=== PATIENT | female | born 1955 | race Caucasian/White ===

== ENCOUNTER → 2023-03-13 11:11 | Outpatient (CLI) | payer MEDICARE, SELFPAY ==
--- NOTE | 2023-03-13 11:34 | DI.DEXA.S_ITS ---
Bone Density Report Name: ERIC ORTIZ Age: 68 Sex: Female Ethnicity: White Date of : 1955 Indication: postmenopausal; screening for osteoporosis; Referring Provider: KARON GAONA Study: Bone densitometry was performed. Exam Date: March 13, 2023 Accession number: [id number] Bone Density: Region BMD T-score Z-score Classification AP Spine(L1-L4) 1.019 -0.3 1.6 Normal Femoral Neck (Left) 0.783 -0.6 1.0 Normal Total Hip (Left) 0.928 -0.1 1.2 Normal Femoral Neck (Right) 0.774 -0.7 0.9 Normal Total Hip (Right) 0.932 -0.1 1.3 Normal Total Hip Mean 0.930 -0.1 1.3 Normal World Health Organization criteria for BMD impression classify patients as: Normal (T-score at or above -1.0), Osteopenia (T-score between -1.0 and -2.5), or Osteoporosis (T-score at or below -2.5). 10-year Fracture Risk: FRAX not reported because: All T-scores for Spine Total, Hip Total, Femoral Neck at or above -1.0 Impression: The patient has normal bone mass. Discussion: BONE DENSITY IS ABOVE THE MINIMUM DESIRABLE LEVEL AT ALL SKELETAL SITES TESTED. This patient?s bone mineral density is above the minimum desirable level (T-score -1.0 or better) at all sites measured. The patient should follow a healthful lifestyle (good nutrition with adequate calcium and vitamin D, and appropriate weight-bearing exercise). Follow-Up: Consider repeating this study in 5 years or sooner if there is some new clinical indication. Reported by: TOSHA SORIANO MD on 03/13/2023 11:43:00 AM.
== END ==
PROVIDERS: PCP Physician Assistant; Referring Provider Physician Assistant; Visit Provider Physician Assistant
DX: Z78.0 Asymptomatic menopausal state (principal); Z13.820 Encounter for screening for osteoporosis
CPT/HCPCS: 77080

== ENCOUNTER → 2023-05-08 16:24 | Outpatient (ROUT) | payer MEDICARE, SELFPAY | PROVIDERS: PCP Physician Assistant; Visit Provider Dermatology | DX: D48.5 Neoplasm of uncertain behavior of skin (principal) | CPT/HCPCS: 87101; 87102 ==

== ENCOUNTER → 2024-01-08 19:08 | Outpatient (CLI) | payer MEDICARE, SELFPAY ==
--- NOTE | 2024-01-08 | DI.MRI.S_ITS ---
PROCEDURE: MR ANKLE LT WO CON INDICATIONS: Strain of muscle(s) and tendon(s) of anterior musc TECHNIQUE: Noncontrast sagittal T1 spin echo and T2 fast spin echo with fat saturation, axial proton density fast spin echo and T2 fast spin echo with fat saturation, coronal T1 spin echo and T2 fast spin echo with fat saturation through the ankle/hindfoot. COMPARISON: [facility], MR, MR FOOT LT WO CON, 01/08/2024, 19:46. FINDINGS: Image quality: Diagnostic Bones and Joints: Tibiotalar joint: Tiny joint effusion. Overall joint is congruent. Mild degenerative changes. Midfoot and hindfoot: Mild degenerative changes. Foot findings are separately dictated. Talar dome: No osteochondral lesions. Medial Structures: Flexor tendons: Trace fluid in the mid flexor digitorum and hallucis tendons. Mild posterior tibialis insertional tendinopathy. Deltoid ligaments: Visualized deep and superficial layers are intact. Spring complex: Intact. Sinus tarsi: Preserved fat signal. Lateral Structures: Ligaments: Thinning and fluid of the anterior talofibular ligament. The other ligaments are intact. Syndesmosis: Tibiofibular ligaments are intact. Syndesmosis is not pathologically widened (2mm). Peroneus tendons: Mild edema is seen adjacent to the mid tendon at the lateral ankle. No discrete defect identified. Anterior Structures: Extensor tendons: Possible tendinopathy is seen in the anterior tibialis, with mild T2 signal abnormality, and thickening Plantar and Posterior Structures: Achilles: Mild edema is seen in the superior calcaneus adjacent to the Achilles insertion Plantar fascia: No pathologic edema. Muscles: Uakw-tz-htqkopxn atrophy is seen in the lateral plantar foot musculature (for example 8/15). Other soft tissues: Mybl-ge-zjwnduxx subcutaneous edema. IMPRESSION: Suspected tendinopathy of the anterior tibialis. There may also be mild tenosynovitis and insertional tendinopathy of the flexor tendons. Thinning and fluid surrounding the anterior talofibular ligament, possibly acute or acute on chronic injury. 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 Mild edema is seen in the superior calcaneus at the insertion of the Achilles tendon. Mild tibiotalar and midfoot degenerative changes. Small tibiotalar joint effusion. Nonspecific subcutaneous soft tissue fluid, no drainable collection Dictated by: Dion Momin M.D. on 01/09/2024 at 8:30 Approved by: Dion Momin M.D. on 01/09/2024 at 8:40
--- NOTE | 2024-01-08 | DI.MRI.S_ITS ---
PROCEDURE: MRFOOT LT WO CON INDICATIONS: Strain of muscle(s) and tendon(s) of anterior musc TECHNIQUE: Multiphasic, multisequence MRI of the forefoot was performed, without intravenous contrast administration. COMPARISON: None. FINDINGS: Image quality: Diagnostic Bones and joints: No pathologic edema of the metatarsal bones. Expected positioning of the sesamoid bones. There are only mild degenerative changes. No significant subchondral edema. Mild focal edema is seen in the distal cuboid superior corner. Soft tissues: Ankle findings are separately dictated. Byqf-ii-dlkaysxc tendinopathy the peroneus longus insertion. The Lisfranc ligament appears intact. The peroneus brevis insertion appears intact. No bursal fluid collections. There is mild diffuse subcutaneous edema. No drainable fluid collection. The plantar plate appears intact on sagittal images. IMPRESSION: There is mild focal edema at the anterior superior cuboid, which may represent a contusion. No displaced component. Mild overall degenerative changes. No displaced fracture or stress fracture identified. No drainable fluid collection or significant bursitis. Zddr-dw-eevedvfc insertional tendinopathy of the peroneus longus. Nonspecific mild diffuse soft tissue edema. Dictated by: Dion Momin M.D. on 01/09/2024 at 8:41 Approved by: Dion Momin M.D. on 01/09/2024 at 8:45
== END ==
PROVIDERS: PCP Physician Assistant; Referring Provider Podiatrist Foot & Ankle Surgery; Visit Provider Podiatrist Foot & Ankle Surgery
DX: S86.212A Strain of muscle(s) and tendon(s) of anterior muscle group at lower leg level, left leg, initial encounter (principal); M25.472 Effusion, left ankle; M79.89 Other specified soft tissue disorders; X58.XXXA Exposure to other specified factors, initial encounter
CPT/HCPCS: 73718; 73721

== ENCOUNTER → 2024-03-05 12:11 | Outpatient (CLI) | payer MEDICARE, SELFPAY ==
--- NOTE | 2024-03-05 12:12 | DI.MG.S_ITS ---
BILATERAL DIGITAL SCREENING MAMMOGRAM 3D/2D WITH CAD: 03/05/2024 CLINICAL: Routine screening. Family history of breast cancer. Comparison is made to exams dated: 09/19/2021 mammogram, 08/11/2021 mammogram, 01/21/2023 mammogram, and 08/10/2020 mammogram - Outside facility. There are scattered areas of fibroglandular density in both breasts (category b / 25%-50% glandular tissue). Current study was also evaluated with a Computer Aided Detection (CAD) system. No significant masses, calcifications, or other findings are seen in either breast. There has been no significant interval change. IMPRESSION: NEGATIVE There is no mammographic evidence of malignancy. A 1 year screening mammogram is recommended. Based on the Tyrer Cuzick model (a risk assessment model) the patient's lifetime risk is 6.7% and her 10 year risk is 3.7%. According to the ACR, ACS, and NCCN guidelines, an annual breast MRI exam along with mammogram is recommended if the patient's lifetime risk is 20% or greater. This exam was interpreted at Station ID: [id number]. NOTE: For mammograms, a report in lay terms will be sent to the patient. Approximately 15% of breast malignancies will not be visualized mammographically. In the management of a palpable breast mass, a negative mammogram must not discourage biopsy of a clinically suspicious lesion. Electronically Signed By: Loy carrasquillo/louis:03/10/2024 17:24:15 letter sent: Normal Exam ACR BI-RADS Category 1: Negative [id number]
--- NOTE | 2024-03-05 12:13 | DI.ECHO.S_ITS ---
[facility] : : [id number] : [place] : : [id number] : : Phone: [phone] Echocardiogram Report + + :Name: ERIC ORTIZ Study Date: 03/05/2024 Height: 69 in : :[facility] ReadingLocation: Weight: 160 lb : : Gender: Female BSA: 1.9 m2 : :: 1955 Age: 69 yrs BP: 118/72 mmHg: :Reason For Study: CARDIAC MURMUR : :Ordering Physician: DARWIN, : :CAMELIA Performed By: Kika Schwab : :Referring: CAMELIA ANDERSON : + + Interpretation Summary 1) Normal left ventricular thickness, size, wall motion, and systolic function (EF 60-65%). 2) Mildly enlarged right ventricle with normal function. 3) There is very mild aortic stenosis (valve area 2.0cm2, mean gfradient 8mmHg). 4) No prior Echo available for comparison. Procedure: A two-dimensional transthoracic echocardiogram with color flow and Doppler was performed. The study quality was technically adequate. There is no prior echocardiogram noted for this patient. The patient was in sinus bradycardia with heart rates between 56-67 bpm during the exam. Left Ventricle: The left ventricle is normal in size and wall thickness. The ejection fraction is estimated to be 60-65%. Left ventricular systolic function appears normal without focal wall motion abnormalities. Right Ventricle: The right ventricle is mildly dilated. The right ventricular systolic function is normal. Atria: The left atrial size is normal. Right atrial size is normal. There is no Doppler evidence for an interatrial shunt. Mitral Valve: The mitral valve leaflets appear mildly thickened, but open well. There is mild mitral annular calcification. There is mild mitral regurgitation. Aortic Valve: The aortic valve is mildly calcified. The aortic valve is trileaflet. There is mild aortic valve sclerosis. The peak aortic velocity is 1.9 m/sec. The aortic valve mean gradient is 8 mmHg. The calculated aortic valve area is 2.0 cm2. There is mild aortic stenosis. No aortic regurgitation is present. Tricuspid Valve: The tricuspid valve is normal in structure and function. There is trace tricuspid regurgitation. Pulmonic Valve: The pulmonic valve leaflets are thin and pliable; valve motion is normal. There is trace pulmonic regurgitation. Great Vessels: The aortic root is normal size. The ascending aorta is mild- moderately enlarged. The IVC is of normal diameter and collapses greater than 50% with a sniff. This suggests a low right atrial pressure of 3 mm Hg. Pericardium/ Pleura There is no pericardial effusion. There is no pleural effusion. MMode/2D Measurements & Calculations LVIDd: 4.4 cm LVOT diam: 2.0 cm LVIDs: 2.7 cm Ao root diam: 3.1 cm FS: 38.5 % asc Aorta Diam: 4.0 cm IVSd: 0.80 cm Ao Arch Diam (Prox Trans): 2.5 cm LVPWd: 0.83 cm LV abel. diameter/BSA (cm/m^2): 2.4 LV sys. diameter/BSA (cm/m^2): 1.5 LA A2 area: 19.5 cm2 RA long axis: 3.8 cm LA A4 area: 14.8 cm2 RA area: 13.6 cm2 LA length (vol): 5.0 cm RA vol: 41.6 ml LA vol: 49.0 ml RA : 22.2 ml/m2 LA vol index: 26.1 ml/m2 IVC diam: 1.1 cm RVD1 (basal): 4.3 cm RVD2 (mid): 2.6 cm TAPSE: 1.9 cm Doppler Measurements & Calculations Ao V2 max: 191.0 cm/sec LVOT Max John: 118.5 cm/sec Ao V2 mean: 130.7 cm/sec LV V1 max P.6 mmHg Ao max P.5 mmHg LV V1 VTI: 27.1 cm Ao mean P.3 mmHg XAVIER(I,D): 2.1 cm2 Ao V2 VTI: 41.6 cm XAVIER(V,D): 2.0 cm2 sev ratio: 0.65 XAVIER indexed to BSA (cm^2/m^2): 1.1 MV E max john: 82.0 cm/sec PA V2 max: 91.9 cm/sec MV A max john: 92.3 cm/sec PA V2 mean: 62.2 cm/sec MV E/A: 0.89 PA mean P.8 mmHg Med Peak E' John: 10.8 cm/sec PA pr(Accel): 24.2 mmHg E/E' med: 7.6 Lat Peak E' John: 11.1 cm/sec E/E' lat: 7.4 E/e' average: 7.5 MV dec time: 0.23 sec SV(LVOT): 88.6 ml Reading Physician:12:37 PM
== END ==
PROVIDERS: PCP Physician Assistant; Referring Provider Internal Medicine Cardiovascular Disease; Visit Provider Internal Medicine Cardiovascular Disease
DX: Z12.31 Encounter for screening mammogram for malignant neoplasm of breast (principal); I08.0 Rheumatic disorders of both mitral and aortic valves; R00.1 Bradycardia, unspecified; I77.810 Thoracic aortic ectasia; I70.0 Atherosclerosis of aorta; R01.1 Cardiac murmur, unspecified; R92.323 Mammographic fibroglandular density, bilateral breasts; Z80.3 Family history of malignant neoplasm of breast
CPT/HCPCS: 77063; 77067; 93306

== ENCOUNTER → 2025-03-12 14:43 | Outpatient (CLI) | payer MEDICARE, SELFPAY ==
--- NOTE | 2025-03-12 14:48 | DI.MG.S_ITS ---
MM screening mammo BI: 03/12/2025. BI-RADS: 1 CLINICAL: 70-year old female for bilateral screening mammogram. Tyrer-Cuzick lifetime risk of 5.0%. No personal or first-degree family history of breast cancer. Current reported family history of breast cancer: paternal aunt's daughter and second paternal aunt's daughter. PRIOR EXAMS: 03/05/2024, 01/21/2023, 08/11/2021. MAMMOGRAPHY TECHNIQUE: 2D and 3D (tomosynthesis) digital mammographic views obtained, with additional images as needed for full coverage. Current study was also evaluated with a Computer Aided Detection (CAD) system. DENSITY B. There are scattered areas of fibroglandular density. MAMMOGRAPHY FINDINGS Bilateral: No suspicious mass, asymmetry, microcalcification, or other abnormality seen. IMPRESSION: * No evidence of malignancy. RECOMMENDATIONS Bilateral * Annual screening mammography. OVERALL ASSESSMENT CATEGORY BI-RADS-1: Negative. The [employer] recommends annual screening mammography beginning at age 40 for women with average risk of breast cancer. ELECTRONICALLY SIGNED: Loy Muonz M.D. on 03/12/2025 at 05:01:20 PM PT Interpreting Station ID: [id number]
== END ==
LOC: MAMMO 14:45
PROVIDERS: PCP Physician Assistant; Referring Provider Physician Assistant; Visit Provider Physician Assistant
DX: Z12.31 Encounter for screening mammogram for malignant neoplasm of breast (principal); Z80.3 Family history of malignant neoplasm of breast
CPT/HCPCS: 77063; 77067

== ENCOUNTER → 2025-04-21 11:15 | Outpatient (CLI) | payer MEDICARE, SELFPAY ==
--- NOTE | 2025-04-21 11:16 | DI.RAD.S_ITS ---
PROCEDURE: XR DEXA AXIAL SKELETON INDICATIONS: postmenopausal state COMPARISON: [facility], CR, XR DEXA AXIAL SKELETON, 03/13/2023, 11:34. FINDINGS: Lumbar Spine: Bone mineral density 0.982 g/cm2, T score -0.6. There is interval 2.1% decrease in total lumbar spine bone mineral density. Left Femoral Neck: Bone mineral density 0.794 g/cm2, T score -0.5. There is interval 1.4% increase in left femoral neck bone mineral density. Left Hip: Bone mineral density 0.868 g/cm2, T score -0.6. There is interval 6.5% decrease in left total hip bone mineral density. Fracture Risk Calculation (when applicable): 10-year fracture risk of a major osteoporotic fracture 7.2 percent and of a hip fracture 0.5 percent. (T score greater or equal to -1.0 to: NORMAL) (T score from -1.1 to -2.4: OSTEOPENIA) (T score less than or equal to -2.5: OSTEOPOROSIS) IMPRESSION: Normal bone mineral density as above. Follow-up guidelines as follows: Osteoporosis: Consider a repeat DEXA and Vertebral Fracture Assessment (VFA) exam in 2 years or sooner if medically necessary, to reassess this patient's status. Osteopenia: Consider a repeat DEXA in 2-3 years to reassess this patient's status, or if there is a new clinical indication. Normal: Consider a repeat DEXA in 5 years or sooner, or if there is a new clinical indication. All treatment decisions require clinical judgment and consideration of individual patient factors, including patient preferences, comorbidities, previous drug use, risk factors not captured in the FRAX model (e.g., frailty, falls, vitamin D deficiency, increased bone turnover, interval significant decline in bone density ) and possible under- or over-estimation of fracture risk by FRAX. In addition, the NOF Guide recommends that FDA-approved medical therapies be considered in postmenopausal women and men age >= 50 years with a: * Hip or vertebral (clinical or morphometric) fracture * T-score of <=-2.5 at the spine or hip * Ten-year fracture probability by FRAX of >= 3% for hip fracture or >=20% for major osteoporotic fracture. Dictated by: Ashok Reza M.D. on 04/21/2025 at 20:33 Approved by: Ashok Reza M.D. on 04/21/2025 at 20:34
== END ==
PROVIDERS: PCP Physician Assistant; Referring Provider Physician Assistant; Visit Provider Physician Assistant
DX: Z78.0 Asymptomatic menopausal state (principal)
CPT/HCPCS: 77080

== ENCOUNTER → 2025-10-13 16:05 | Outpatient (CLI) | payer MEDICARE, SELFPAY ==
[2025-10-13 16:58] LABS: Hematocrit 40.3 % (36-46); Hemoglobin 13.5 g/dL (12.0-16.0); Mean Corpuscular HGB Conc 33.5 % (30-36); Mean Corpuscular Hemoglobin 31.2 PG (26-34); Mean Corpuscular Volume 93.1 fL (80-100); Platelet Count 231 X10^3/uL (150-400)
[2025-10-13 17:51] LABS: Alanine Aminotransferase 32 IU/L (<35); Albumin 4.6 g/dL (3.5-5.0); Albumin Globulin Ratio 1.8 (1.0-2.8); Alkaline Phosphatase 67 U/L (38-126); Blood Urea Nitrogen 18 mg/dL (7-17); Calcium 9.3 mg/dL (8.4-10.2); Carbon Dioxide 29 mmol/L (22-32); Chloride 102 mmol/L (98-107); Estimated Glomerular Filt Rate > 60 mL/min (>60); Globulin 2.6 g/dL (1.7-4.1); Glucose 73 mg/dL (70-99); HEMOLYSIS < 15 (0-50); Potassium 4.2 mmol/L (3.4-5.1); Sodium 140 mmol/L (137-145); Total Protein 7.2 g/dL (6.3-8.2)
[2025-10-13 18:09] LABS: Basophils Percent Manual 3.0 % (0-1); Lymphocytes Percent Manual 19.0 % (25-45); Monocytes Percent Manual 10.0 % (2-11); Neutrophils Absolute Manual 5100 /uL (3000-5900); RBC Morphology Normal Morphology; Segmented Neutrophils Percent 68.0 % (38-70); Total Cells Counted 100
[2025-10-14 17:14] LABS: HIV 1 & 2 Ab/Ag 4th Gen Combo NEGATIVE (NEGATIVE); Hep C Virus Ab w/Reflex Quant NEGATIVE s/c (NEGATIVE)
== END ==
PROVIDERS: PCP Family Medicine; Referring Provider Family Medicine; Visit Provider Family Medicine
DX: D59.11 Warm autoimmune hemolytic anemia (principal)
CPT/HCPCS: 36415; 80053; 85025; 86803; 87389